=== PATIENT | female | born 1975 | race Caucasian/White ===

== ENCOUNTER 2020-06-18 10:23 | Emergency (ER) | payer MEDICARE, MEDICAID, SELFPAY ==
[2020-06-18] VITALS (17 sets, daily range): BP systolic 106–113; BP diastolic 58–85; PULSE 102–104; RESP 14–20; TEMP 36.6; O2SAT 95–96; BMI 26.6
[2020-06-18] MEDS: LORazepam 1 MG TABLET 2 MG PO ×3 (11:30→19:59)
--- NOTE | 2020-06-18 11:46 | ED_ITS ---
HPI - Psych General Chief Complaint: Psychiatric Symptoms Stated Complaint: cut wrist Time Seen by Provider: 06/18/20 11:06 Source: patient and EMS Mode of arrival: EMS Limitations: no limitations History of Present Illness HPI Narrative: 44yoF c PMHx of CVA and substance dependent on heroin sober since Apr 21, 2020 currently in senior care house presenting to the ED after increased anxiety, aggression and self injury pelletier to b/l forearms from a razor blade due to not being allowed to go to the store to purchase her cigarettes. Patient admits to SI with plan to cut her bilateral forearms or slammed her head into the wall until she starts bleeding. Reports auditory hallucinations telling her to harm herself if they do not let her do what she wants. Denies visual hallucinations. Patient denies HI. Denies recent drug or alcohol usage since 04/21/2020. Denies any additional complaints or concerns at this time. Related Data Home Medications Medication Instructions Recorded Confirmed aspirin 81 mg PO DAILY 06/18/20 06/18/20 atorvastatin 80 mg PO BEDTIME 06/18/20 06/18/20 folic acid 1 mg PO DAILY 06/18/20 06/18/20 gabapentin 1,200 mg PO TID 06/18/20 06/18/20 ibuprofen 800 mg PO Q8H PRN 06/18/20 06/18/20 multivitamin 1 tab PO DAILY 06/18/20 06/18/20 quetiapine [Seroquel] 300 mg PO BID 06/18/20 06/18/20 quetiapine [Seroquel] 600 mg PO BEDTIME 06/18/20 06/18/20 Allergies Allergy/AdvReac Type Severity Reaction Status Date / Time fish derived [fish] Allergy Anaphylaxis Verified 06/18/20 12:10 buprenorphine [From Suboxone] AdvReac Vomiting Verified 06/18/20 12:10 naloxone [From Suboxone] AdvReac Vomiting Verified 06/18/20 12:10 risperidone [From Risperdal] AdvReac Insomnia Verified 06/18/20 12:10 betacarotene AdvReac Nausea Uncoded 06/18/20 12:10 Review of Systems Review of Systems: Constitutional : No Fever, No Chills ENT/Mouth : No Ear Pain, No Nasal Congestion, No sore throat Eyes: No Eye Pain, No Swelling, No Redness Cardiovascular : No Chest Pain, No SOB Respiratory : No Cough, No Sputum, No Dyspnea Gastrointestinal : No ingestions, No Nausea, No Vomiting, No Diarrhea, No Hematochezia, No Melena Genitourinary : No Dysuria, No Urinary Frequency, No Hematuria Musculoskeletal : No Myalgias Skin : No Skin Lesions, No rash Neuro : No Weakness, No Numbness, No Paresthesias, No Dizziness, No Headache Psych : + Anxiety, + Depression, + SI, + No thoughts of self injury, No HI, + AVH, Heme/Lymph: No Lymphadenopathy Endocrine : No Polyuria, No Polydipsia Yes all other systems are reviewed and are negative [facility] Past Medical History Attestation statement: The following information was validated with the patient. Medical History (Updated 06/18/20 @ 12:31 by AMBROSIO Smith) CVA (cerebral vascular accident) Hep C w/o coma, chronic Skin cancer Substance abuse Social History Social History Alcohol intake: unknown Smoking Status: Current every day smoker Use of substances other than those prescribed or required for medical reasons: No Any prior treatment program specific to substance use: Yes Advance Directives: No Advance Directives Information Provided: Yes Physical Exam Vital Signs: Vital Signs: Last Vital Signs Temp 97.8 F 06/18/20 18:00 Pulse 102 H 06/18/20 18:00 Resp 18 06/18/20 18:00 BP 106/85 06/18/20 18:00 Pulse Ox 95 06/18/20 18:00 Body Mass Index 26.6 vital signs have been reviewed as normal and appeared to be correct. Blood pressure normal. Heart rate tachycardic. Respiration rate normal. Temperature normal. Oxygen saturation normal. Appearance: Alert. Oriented X3. patient appears very sad and anxious along with depressed currently crying over her cigarettes. otherwise no acute distress. Head: Normal external exam. Normocephalic. Atraumatic. Eyes: PERRLA. EOMI. Conjunctiva and sclera normal. Eyelids normal. ENT: EAC normal. TM's Normal. Pharynx normal. Uvula midline. Moist mucous membranes. Neck: Normal inspection. Neck supple. FROM. No meningeal signs. CVS: Normal heart rate and rhythm. Heart sound normal. No murmurs noted. Pulses normal throughout. Respiratory: No respiratory distress. Painless inspiration. Breath sounds normal. No wheezes/rales/rhonchi noted. Chest nontender. No accessory muscle usage noted or decreased air movement noted. Back: Full range of motion noted. Skin: Skin warm and dry. Normal skin color. Normal skin turgor. Multiple oakley perficial self-injury linear lacerations to bilateral forearms. Bleeding is controlled. No foreign bodies. No signs of infection/drainage/surrounding erythema. No rashes/lesions noted. Extremities: Extremities exhibit normal range of motion. Extremities nontender. Neuro: Oriented X 3. No motor deficit. No sensory deficit. Reflexes normal. Psych: Appearance grossly normal, well-kept, mental status normal, speech is pressured and clear, Is cooperative. Bad thought process. Bad thought content. Abnormal insight. Bad Judgment. Course Course Course Narrative: 11:30AM - 44yoF c PMHx of CVA and substance dependent on heroin sober since Apr 21, 2020 currently in senior care house presenting to the ED after increased anxiety, aggression and self injury pelletier to b/l forearms from a razor blade due to not being allowed to go to the store to purchase her cigarettes. SI with plan to cut her bilateral forearms or slam head into the wall until she starts bleeding. Reports auditory hallucinations telling her to harm herself if they do not let her do what she wants. Denies visual hallucinations. Patient denies HI. Denies recent drug or alcohol usage since 04/21/2020. - Plan: Labs provide ativan, BHN evaluation then re-evaluate. Reevaluation(s) Reevaluation #1: mild elevation in AST/ALT at 51/50. Otherwise all other labs are within normal limits. COVID swab negative. Still awaiting UA and drugs of abuse screen. Patient medically cleared at this time. Awaiting BHN evaluation. Will continue to monitor. Time: 15:01 Reevaluation #2: Patient removed her dressings to bilateral forearms and started picking the scab started being aggressively and verbally abusive. Increased aggression and anxiety. Screaming using profanity. Therefore had to be placed in 4 point restraints and medical restraints. Will continue to monitor. Time: 17:17 [facility] - Psych Restraints Face to Face Assessment: Face to Face Assessment: Current Situation: After assessment of the patient, a review of the pertinent medical record and a discussion with nursing staff, I feel the patient requires a restrain intervention. Reaction To: [] Medical Condition: [] Behavioral State: [] Continued Need: [] Medical Records Attestation: I reviewed the patient's medical records. Lab Data Attestation: I reviewed the patient's lab results. Result diagrams: 06/18/20 11:57 06/18/20 11:57 Labs: Lab Results 06/18/20 06/18/20 06/18/20 Range/Units 11:57 11:57 11:57 WBC 3.7 L (4.8-10.8) X10*3/uL RBC 4.75 (4.20-5.50) X10*6/uL Hgb 12.5 (12.0-16.0) g/dl Hct 39.3 (37-47) % MCV 82.7 (80-98) fL MCH 26.3 L (27.0-33.0) pg MCHC 31.8 (31.0-35.0) g/dl RDW 13.6 (11.0-16.0) % Plt Count 97 L (160-400) X10*3/uL MPV Not Reportable Immature Gran % (Auto) 0.3 (0.0-0.4) % Neut % (Auto) 57.3 (45-73) % Lymph % (Auto) 33.8 (20-40) % [place] % (Auto) 4.9 (2-11) % Eos % (Auto) 3.2 (0-4) % Baso % (Auto) 0.5 (0-2) % Lymph # (Auto) 1.3 (1.2-4.9) X10*3/uL [place] # (Auto) 0.2 (0.1-1.2) X10*3/uL Eos # (Auto) 0.1 (0.0-0.4) X10*3/uL Baso # (Auto) 0.0 (0.0-0.2) X10*3/uL Abs Immat Gran (auto) 0.01 (0.00-0.03) X10*3/uL Absolute Neuts (auto) 2.1 (2.0-8.3) X10*3/uL Absolute Nucleated RBC 0.000 (0.0-0.012) X10*3/uL Nucleated RBC % (auto) 0.0 (0.0-0.2) /100WBC Sodium 138 (135-145) mmol/L Potassium 4.5 (3.3-5.1) mmol/l Chloride 105 (96-108) mmol/L Carbon Dioxide 23 (22-29) mmol/L Anion Gap 15 (12-20) BUN 15 (9-16) mg/dL Creatinine 0.79 (0.5-1.4) mg/dL Estim Creat Clear Calc 99.3 Estimated GFR > 60 Random Glucose 90 (60-115) mg/dL Calcium 8.1 L (8.4-10.2) mg/dL Magnesium 2.0 (1.6-2.6) mg/dL Total Bilirubin 0.3 (0.0-1.0) mg/dL Direct Bilirubin < 0.2 (0.0-0.5) mg/dL AST 51 H (5-31) U/L ALT 50 H (0-31) U/L Alkaline Phosphatase 57 (39-117) U/L Total Protein 7.4 (6.5-8.0) g/dL Albumin 4.0 (3.5-5.0) g/dL Ethyl Alcohol < 10 mg/dL COVID-19 (PAUL) (Negative) COVID-19 Clin Com 06/18/20 Range/Units 12:11 WBC (4.8-10.8) X10*3/uL RBC (4.20-5.50) X10*6/uL Hgb (12.0-16.0) g/dl Hct (37-47) % MCV (80-98) fL MCH (27.0-33.0) pg MCHC (31.0-35.0) g/dl RDW (11.0-16.0) % Plt Count (160-400) X10*3/uL MPV Immature Gran % (Auto) (0.0-0.4) % Neut % (Auto) (45-73) % Lymph % (Auto) (20-40) % [place] % (Auto) (2-11) % Eos % (Auto) (0-4) % Baso % (Auto) (0-2) % Lymph # (Auto) (1.2-4.9) X10*3/uL [place] # (Auto) (0.1-1.2) X10*3/uL Eos # (Auto) (0.0-0.4) X10*3/uL Baso # (Auto) (0.0-0.2) X10*3/uL Abs Immat Gran (auto) (0.00-0.03) X10*3/uL Absolute Neuts (auto) (2.0-8.3) X10*3/uL Absolute Nucleated RBC (0.0-0.012) X10*3/uL Nucleated RBC % (auto) (0.0-0.2) /100WBC Sodium (135-145) mmol/L Potassium (3.3-5.1) mmol/l Chloride (96-108) mmol/L Carbon Dioxide (22-29) mmol/L Anion Gap (12-20) BUN (9-16) mg/dL Creatinine (0.5-1.4) mg/dL Estim Creat Clear Calc Estimated GFR Random Glucose (60-115) mg/dL Calcium (8.4-10.2) mg/dL Magnesium (1.6-2.6) mg/dL Total Bilirubin (0.0-1.0) mg/dL Direct Bilirubin (0.0-0.5) mg/dL AST (5-31) U/L ALT (0-31) U/L Alkaline Phosphatase (39-117) U/L Total Protein (6.5-8.0) g/dL Albumin (3.5-5.0) g/dL Ethyl Alcohol mg/dL COVID-19 (PAUL) Negative (Negative) COVID-19 Clin Com See Note Discharge Plan Discharge Clinical Impression: Acute anxiety, Laceration, Self-inflicted injury Prescriptions: No Action multivitamin Tablet 1 tab PO DAILY RF: 0 atorvastatin 80 mg Tablet 80 mg PO BEDTIME RF: 0 quetiapine [Seroquel] 300 mg Tablet 300 mg PO BID RF: 0 quetiapine [Seroquel] 300 mg Tablet 600 mg PO BEDTIME RF: 0 ibuprofen 800 mg Tablet 800 mg PO Q8H PRN (Reason: Pain, Moderate) RF: 0 folic acid 1 mg Tablet 1 mg PO DAILY RF: 0 aspirin 81 mg Tablet 81 mg PO DAILY RF: 0 gabapentin 400 mg Capsule 1,200 mg PO TID RF: 0
[2020-06-18 12:04] LABS: MANUAL DIFF FLAG NO
[2020-06-18 12:05] LABS: Basophils Percent Auto 0.5 % (0-2); Eosinophils Absolute Auto 0.1 X10*3/uL (0.0-0.4); Eosinophils Percent Auto 3.2 % (0-4); Hematocrit 39.3 % (37-47); Hemoglobin 12.5 g/dl (12.0-16.0); Imm Gran Abs Auto 0.01 X10*3/uL (0.00-0.03); Imm Gran Pct Auto 0.3 % (0.0-0.4); Lymphocytes Absolute Auto 1.3 X10*3/uL (1.2-4.9); Lymphocytes Percent Auto 33.8 % (20-40); Mean Corpuscular HGB Conc 31.8 g/dl (31.0-35.0); Mean Corpuscular Hemoglobin 26.3 pg (27.0-33.0); Mean Corpuscular Volume 82.7 fL (80-98); Monocytes Absolute Auto 0.2 X10*3/uL (0.1-1.2); Monocytes Percent Auto 4.9 % (2-11); Neutrophils Absolute Auto 2.1 X10*3/uL (2.0-8.3); Neutrophils Percent Auto 57.3 % (45-73); Red Blood Count 4.75 X10*6/uL (4.20-5.50); Red Cell Distribution Width 13.6 % (11.0-16.0); White Blood Count 3.7 X10*3/uL (4.8-10.8)
[2020-06-18 12:06] LABS: Platelet Count 97 X10*3/uL (160-400)
[2020-06-18 12:41] LABS: COVID-19 Test Negative (Negative)
[2020-06-18 12:45] LABS: Alanine Aminotransferase 50 U/L (0-31); Alkaline Phosphatase 57 U/L (39-117); Anion Gap 15 (12-20); Aspartate Amino Transferase 51 U/L (5-31); Bilirubin Direct < 0.2 mg/dL (0.0-0.5); Bilirubin Total 0.3 mg/dL (0.0-1.0); Blood Urea Nitrogen 15 mg/dL (9-16); Calcium 8.1 mg/dL (8.4-10.2); Carbon Dioxide 23 mmol/L (22-29); Chloride 105 mmol/L (96-108); Creatinine Clr Calc Pharmacy 99.3; Estimated Glomerular Filt Rate > 60; Glucose Random 90 mg/dL (60-115); Potassium 4.5 mmol/l (3.3-5.1); Sodium 138 mmol/L (135-145); Total Protein 7.4 g/dL (6.5-8.0)
[2020-06-18 12:50] LABS: Ethanol < 10 mg/dL
--- NOTE | 2020-06-18 12:50 | PC.NURSE ---
Pt resting, resp unlabored. Received call from Arleen Vee at [facility]: [phone]- stating that they would not accept pt back.
--- NOTE | 2020-06-18 14:00 | PC.NURSE ---
BLAIR[facility] called/faxed.
[2020-06-18] MEDS: Gabapentin 600 MG TABLET 1200 MG PO (16:00)
[2020-06-18] MEDS: QUEtiapine Fumarate 300 MG TABLET PO ×2 (16:07→19:59)
--- NOTE | 2020-06-18 16:21 | PC.NURSE ---
Lana mckinley called re: medication history. Fax received from Lana mckinley r/t medications prescribed. Pt contests Gabapentin dosage as written, states that she takes 1200 mg TID. Lana mckinley called, left message to clarify. Pt escalated, stating that she had already missed a dose, swearing, insulting staff. Lana mckinley called again- they reviewed MD notes- confirmed that pt takes 1200 mg Gabapentin TID. Pt aware that dosage was confirmed. N called- no one picking up call. Care team aware.
--- NOTE | 2020-06-18 17:13 | PC.NURSE ---
Late entry: 1530 Pt increasingly agitated, swearing at staff, insulting staff, wanting her medications immediately- explained to pt that med rec is a process, pt unable to hear, began to scream, then began to pick ayt wounds, and bleeding on floor. Multiple attempts made to negotiate with pt, able to complete med rec, pt medicated as requested, but now pt demanding to leave. explained many times to pt that crisis must see her before disposition can be accomplished- pt unable to hear, screaming at staff. security called. pt restrained. [facility] returned call, plan to send clinician at 1800.
[2020-06-18] MEDS: Ziprasidone Mesylate 20 MG VIAL 10 MG IM (17:18)
--- NOTE | 2020-06-18 18:10 | PC.NURSE ---
PT released from restraints at 1800. When offered comfort measures, such as food, blankets and pillows, by MHA PT became verbally aggressive and made derogatory statements towards staff. PT is somewhat redirectable and stopped making remarks when she was asked to by the nurse.
--- NOTE | 2020-06-18 19:13 | PC.NURSE ---
BHN in to see pt
[2020-06-18] MEDS: Gabapentin 400 MG CAPSULE 1200 MG PO (19:58)
[2020-06-18] MEDS: QUEtiapine Fumarate 300 MG TABLET 600 MG PO (19:59)
[2020-06-18] MEDS: Atorvastatin Calcium 80 MG TABLET PO (20:06)
[2020-06-18] MEDS: Ibuprofen 800 MG TABLET PO (20:06)
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
[2020-06-18] MEDS: OLANZapine 10 MG VIAL IM (21:05)
[2020-06-18] MEDS: LORazepam 2 MG/ML VIAL IM (21:05)
--- NOTE | 2020-06-18 21:33 | PC.NURSE ---
Patient seems very upset over disposition, stating she has been
--- NOTE | 2020-06-18 23:36 | PC.NURSE ---
Patient in bed appears sleeping, patient is s/p restraint, respiration +/=/non-labored bilaterally, will continue to monitor.
[2020-06-19] VITALS (16 sets, daily range): BP systolic 85–120; BP diastolic 58–103; PULSE 18–123; RESP 16–117; TEMP 36.1–36.6; O2SAT 95–100
--- NOTE | 2020-06-19 01:08 | PC.NURSE ---
Patient just came out of room with her eyes closed asking for drinks, patient situated in chair, room cleaned/bedding changed/lacerations on left inner arm irritated/open/scantly bleeding/washed with NS/pad dry/covered with gauze & secured with tapes. Patient in bed currently, covered with warm blanket, appears sleeping, no distress observed at this time, will continue to monitor.
--- NOTE | 2020-06-19 02:00 | PC.NURSE ---
Patient just woke up for bathroom use, gaits unsteady, needs total toileting care, patient washed/changed/ushered back to room with two assist for ambulation. Will continue to monitor.
--- NOTE | 2020-06-19 04:19 | PC.NURSE ---
Patient up with multiple needs, compliant with Vital signs assessment & WNL, patient groggy at this time, denied distress at this time, will continue to monitor.
[2020-06-19] MEDS: LORazepam 1 MG TABLET 2 MG PO ×2 (05:41→21:01)
--- NOTE | 2020-06-19 06:14 | PC.NURSE ---
Patient in bed resting, was up earlier for multiple needs including medication, PRN ativan 2 mg administered as ordered. [facility] called/Methadone dose verified/provider notified and approved/pharmacy faxed/pending MAR update. Will continue to monitor the patient.
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
[2020-06-19] MEDS: Multivitamin TABLET 1 TAB PO (08:00)
[2020-06-19] MEDS: Gabapentin 400 MG CAPSULE 1200 MG PO (08:00)
[2020-06-19] MEDS: Folic Acid 1 MG TABLET PO (08:00)
[2020-06-19] MEDS: QUEtiapine Fumarate 300 MG TABLET PO ×2 (08:00→21:00)
[2020-06-19] MEDS: Aspirin 81 MG TAB.CHEW PO (08:14)
--- NOTE | 2020-06-19 11:03 | MHC.CARE ---
Pt is currently a bedsearch through [facility] Behavioral Health Director requested CARE Team to follow up with [facility] regarding possible Section 35. CARE left a message for hSilpi at [facility] and awaiting a call back.
--- NOTE | 2020-06-19 11:07 | PM.PSYCN ---
History of Present Illness Chief Complaint: cut wrist Reason for Consult: med recommendation aggression agitation Requesting physician: Alexandra Astorga Discussed with referring provider: Yes Sources of Information: chart reviewed Additional Sources of Information: RN HPI Narrative: Pt is a 44 year old female who presented to [facility] from intermediate house due to aggressive behaviors and suicidal statements at residence secondary to not being able to go to the store to purchase cigarettes. Once in ED patient aggressive, agitated, threatening, engaging in self injurious behaviors. Required multiple physical and chemical restraints. Pt asleep when this aligner typewriter arrived to area of ED. Per RN, when awake, patient angry, aggressive, threatening. Medication list reviewed, no previous history at [facility]. Reported that patient was recently released from incarceration. Medical history reported to include history of CVA and possible brain injury realted to this. Past Psychiatric History: Unknown, but has psychotropic medications prescribed Medical Evaluation Reviewed: Yes Still waiting on UDS Review of Systems Review of Systems Yes Unobtainable due to mental status [facility] Medical History (Updated 06/19/20 @ 11:18 by Natalia Peter CNP) CVA (cerebral vascular accident) Hep C w/o coma, chronic Skin cancer Substance abuse Diagnostics Vital Signs (24Hr): Vital Signs - 24 hr 06/18/20 11:18 06/18/20 17:00 06/18/20 17:15 Temperature 97.8 F Pulse Rate 104 H Respiratory Rate 18 20 20 Blood Pressure 113/58 L Pulse Oximetry 96 06/18/20 17:30 06/18/20 17:45 06/18/20 18:00 Temperature 97.8 F Pulse Rate 102 H Respiratory Rate 18 20 18 Blood Pressure 106/85 Pulse Oximetry 95 06/18/20 20:50 06/18/20 21:05 06/18/20 21:08 Temperature Pulse Rate Respiratory Rate 20 20 20 Blood Pressure Pulse Oximetry 06/18/20 21:09 06/18/20 21:23 06/18/20 21:24 Temperature Pulse Rate Respiratory Rate 20 14 14 Blood Pressure Pulse Oximetry 06/18/20 21:38 06/18/20 21:39 06/18/20 21:53 Temperature Pulse Rate Respiratory Rate 14 14 14 Blood Pressure Pulse Oximetry 06/18/20 21:54 06/18/20 22:08 06/19/20 04:31 Temperature 97.8 F Pulse Rate 81 Respiratory Rate 14 14 17 Blood Pressure 98/58 L Pulse Oximetry 99 06/19/20 09:05 Temperature 97.3 F Pulse Rate 110 H Respiratory Rate Blood Pressure 104/66 Pulse Oximetry 95 Body Mass Index 26.6 Labs Results: 06/18/20 11:57 06/18/20 11:57 Labs: Laboratory Results - last 48 hr 06/18/20 06/18/20 06/18/20 11:57 11:57 11:57 WBC 3.7 L RBC 4.75 Hgb 12.5 Hct 39.3 MCV 82.7 MCH 26.3 L MCHC 31.8 RDW 13.6 Plt Count 97 L MPV Not Reportable Immature Gran % (Auto) 0.3 Neut % (Auto) 57.3 Lymph % (Auto) 33.8 [place] % (Auto) 4.9 Eos % (Auto) 3.2 Baso % (Auto) 0.5 Lymph # (Auto) 1.3 [place] # (Auto) 0.2 Eos # (Auto) 0.1 Baso # (Auto) 0.0 Abs Immat Gran (auto) 0.01 Absolute Neuts (auto) 2.1 Absolute Nucleated RBC 0.000 Nucleated RBC % (auto) 0.0 Sodium 138 Potassium 4.5 Chloride 105 Carbon Dioxide 23 Anion Gap 15 BUN 15 Creatinine 0.79 Estim Creat Clear Calc 99.3 Estimated GFR > 60 Random Glucose 90 Calcium 8.1 L Magnesium 2.0 Total Bilirubin 0.3 Direct Bilirubin < 0.2 AST 51 H ALT 50 H Alkaline Phosphatase 57 Total Protein 7.4 Albumin 4.0 Ethyl Alcohol < 10 COVID-19 (PAUL) COVID-19 Clin Com 06/18/20 12:11 WBC RBC Hgb Hct MCV MCH MCHC RDW Plt Count MPV Immature Gran % (Auto) Neut % (Auto) Lymph % (Auto) [place] % (Auto) Eos % (Auto) Baso % (Auto) Lymph # (Auto) [place] # (Auto) Eos # (Auto) Baso # (Auto) Abs Immat Gran (auto) Absolute Neuts (auto) Absolute Nucleated RBC Nucleated RBC % (auto) Sodium Potassium Chloride Carbon Dioxide Anion Gap BUN Creatinine Estim Creat Clear Calc Estimated GFR Random Glucose Calcium Magnesium Total Bilirubin Direct Bilirubin AST ALT Alkaline Phosphatase Total Protein Albumin Ethyl Alcohol COVID-19 (PAUL) Negative COVID-19 Clin Com See Note Mental Status Exam Mental Status Exam Narrative: Pt asleep when this aligner typewriter arrived, but report is that she is concrete, aggressive, agitated and requiring firm limit setting Level of Consciousness: Sedated Abnormal Motor Activity Signs and Symptoms: Aggression and Agitation Judgement: Poor Medications Medications Current Medications Generic Name Dose Route Start Last Admin Trade Name Freq PRN Reason Stop Dose Admin Aspirin 81 mg 06/19/20 09:00 06/19/20 08:14 Aspirin 81 Mg Tab.Chew PO 81 mg DAILY THOMAS Administration Atorvastatin Calcium 80 mg 06/18/20 21:00 06/18/20 20:06 Atorvastatin Calcium 80 Mg Tablet PO 80 mg BEDTIME THOMAS Administration Folic Acid 1 mg 06/19/20 09:00 06/19/20 08:00 Folic Acid 1 Mg Tablet PO 1 mg DAILY THOMAS Administration Gabapentin 1,200 mg 06/18/20 21:00 06/19/20 08:00 Gabapentin 400 Mg Capsule PO 1,200 mg TID THOMAS Administration Ibuprofen 800 mg 06/18/20 16:34 06/18/20 20:06 Ibuprofen 800 Mg Tablet PO 800 mg Q8H PRN Administration Pain, Moderate Lorazepam 2 mg 06/18/20 11:21 06/19/20 05:41 Lorazepam 1 Mg Tablet PO 2 mg RQ4H PRN Administration anxiety/restlessness Lorazepam 2 mg 06/19/20 10:48 Lorazepam 1 Mg Tablet PO RQ4H PRN anxiety/restlessness Methadone HCl 50 mg 06/19/20 09:00 06/19/20 08:01 Methadone Hcl 1 Mg/0.1 Ml Oral.Conc PO 50 mg DAILY THOMAS Administration Multivitamins/Vitamin C 1 tab 06/19/20 09:00 06/19/20 08:00 Multivitamin Tablet PO 1 tab DAILY THOMAS Administration Quetiapine Fumarate 300 mg 06/18/20 21:00 06/19/20 08:00 Quetiapine Fumarate 300 Mg Tablet PO 300 mg BID THOMAS Administration Quetiapine Fumarate 600 mg 06/18/20 21:00 06/18/20 19:59 Quetiapine Fumarate 300 Mg Tablet PO 600 mg BEDTIME THOMAS Administration Allergies Allergies Allergy/AdvReac Type Severity Reaction Status Date / Time fish derived [fish] Allergy Anaphylaxis Verified 06/18/20 12:10 buprenorphine [From Suboxone] AdvReac Vomiting Verified 06/18/20 12:10 naloxone [From Suboxone] AdvReac Vomiting Verified 06/18/20 12:10 risperidone [From Risperdal] AdvReac Insomnia Verified 06/18/20 12:10 [email or web address] AdvReac Nausea Uncoded 06/18/20 12:10 Assessment & Plan Assessment & Plan (1) Mood disorder: Status: Acute Code(s): F39 - Unspecified mood [affective] disorder Recommendations: EKG UDS --? of behaviors related to substance use Decrease Gabapentin to 900mg TID Add Depakote 250mg TID Would be helpful to know about any other medication trials and history of psychiatric sx Greater than 50% of the session was spent on counseling and/or coordination of care
--- NOTE | 2020-06-19 11:30 | MHC.CARE ---
Addendum entered by Megan Munoz LCSW 06/19/20 16:47: lack of documentation Original Note: CARE Team spoke with Shilpi from [facility]- Pt is not appropriate to be Section 35'd at this time due to the acuity of her mental health and documentation of her ongoing substance use. Information relayed to Behavioral Health Director.
--- NOTE | 2020-06-19 11:38 | MHC.CARE ---
Spoke with chief business development officer Jahaira [phone], she indicate that Na currently is not on probation in the [facility]. She informed to me that she has a long history of mental and substance abuse. She was not able to provide more information on patient.
--- NOTE | 2020-06-19 11:53 | PC.NURSE ---
Pt awake, continues to be agitated while awake, and drowsy, easily falling asleep when sitting. Pt encouraged to give urine sample- despite many multiple approaches, no urine sample provided.
--- NOTE | 2020-06-19 13:43 | PC.NURSE ---
Pt threw lunch against the wall. security in pt angry, droswy, swearing at staff and security.
[2020-06-19] MEDS: OLANZapine 10 MG VIAL IM ×2 (14:20→17:50)
--- NOTE | 2020-06-19 15:18 | PC.NURSE ---
Pt out of restraints. Pt notified that her medications have been modified by consulting provider. Pt declining to take any medications. Pt currently in room, given turkey sandwich which she smeared on the door.
--- NOTE | 2020-06-19 15:34 | PC.NURSE ---
pt resting, resp unlabored.
[2020-06-19 16:55] LABS: Glucose Urine UA NEG (NEG); Leukocyte Esterase Urine NEG (NEG); Nitrite Urine NEG (NEG); Specific Gravity - Urine 1.025 (1.005-1.025); Urine Blood 3+ (NEG); Urine Ketones NEG (NEG); Urine Protein NEG (NEG-TRACE)
[2020-06-19 16:56] LABS: Appearance Urine HAZY; Color Urine YELLOW
[2020-06-19 17:08] LABS: RBC Urine 50-75 /HPF (0); Squamous Epithelial Cell Urine TRACE /LPF; WBC Urine 0 /HPF (0-4)
[2020-06-19 17:14] LABS: Amphetamine Screen Urine Not Detected (Not Detect); Barbiturates, Urine Not Detected (Not Detect); Benzodiazepines Screen Urine Not Detected (Not Detect); Cannabinoid Screen Urine Not Detected (Not Detect); Cocaine Screen Urine Not Detected (Not Detect); Opiate Screen Urine Not Detected (Not Detect); Phencyclidine Screen Urine Not Detected (Not Detect)
[2020-06-19] MEDS: Ketamine HCl 500 MG/5 ML VIAL 160 MG IM (17:18)
[2020-06-19] MEDS: Lidocaine HCl 2 % MPF 5 ML VIAL 20 ML SUBCUT (17:30)
--- NOTE | 2020-06-19 17:45 | PC.NURSE ---
Late entry~1715: pt increasingly agitated, demanding PRN. Pt reminded that she had declined regular medications. Pt began to strike her head against the door- MHA entered room to prevent pt from self harm. Pt toes were injured in process- bilateral nails on great toes avulsed - provider, ED coordinator in- DSD w/ NS applied. Pt very agitated, screaming at staff. Report given to NATE Kelly, pt transferred to main ED for treatment.
[2020-06-19 17:46] LABS: UPreg QC Valid YES; Urine Pregnancy NEGATIVE (NEGATIVE)
[2020-06-19] MEDS: QUEtiapine Fumarate 300 MG TABLET 600 MG PO (21:00)
[2020-06-19] MEDS: Ibuprofen 800 MG TABLET PO (21:00)
[2020-06-19] MEDS: Atorvastatin Calcium 80 MG TABLET PO (21:01)
[2020-06-20] VITALS (33 sets, daily range): BP systolic 99–130; BP diastolic 65–82; PULSE 78–120; RESP 14–22; TEMP 36.2–36.7; O2SAT 96–100
--- NOTE | 2020-06-20 00:53 | PC.NURSE ---
PT woke up and moved out of bed very confused. PT asked where she was and stated that [facility]. PT was given verbal reassurance and encouraged to go back to bed. PT agreed and was easily redirected back to her room.
[2020-06-20] MEDS: LORazepam 1 MG TABLET 2 MG PO ×3 (01:26→21:29)
--- NOTE | 2020-06-20 05:57 | PC.NURSE ---
PT woke up around 05:00 and began screaming for her methadone. I explained to the PT that the methadone clinic couldn't be called until 06:00 when they open. PT behavior continued to escalate and required additional assistance from security and nurses. PT was throwing crackers and pudding around her room. She then proceeded to make vulgar comments to nurses and security. PT is unable to hold a logical conversation. She does not understand that she is being held here on a Section 12 and is unable to leave.
--- NOTE | 2020-06-20 06:39 | PC.NURSE ---
PT is making statements that she will continue to act out for the sole purpose of receiving more medications. PT continues to demand methadone which is not due until 0900.
--- NOTE | 2020-06-20 06:57 | PC.NURSE ---
PT was continuing to verbally assault security and nursing staff. PT began banging her hands, feet, and head against the door. Verbal deescalation was attempted to no effect. PT continued to demand her medications which are not due until 09:00. During restraint PT continued to threaten staff, continued screaming. PT refusing vital signs at this time.
--- NOTE | 2020-06-20 07:15 | PC.NURSE ---
PT continues yelling in her room, explained that in order to remove restraints PT needs to be calm and cooperative.
--- NOTE | 2020-06-20 07:43 | PC.NURSE ---
Pt continues periodically yelling, plan of care explained.
--- NOTE | 2020-06-20 08:10 | PC.NURSE ---
Pt released from restraints, periodically yelling, limits set.
[2020-06-20] MEDS: Aspirin 81 MG TAB.CHEW PO (08:38)
[2020-06-20] MEDS: QUEtiapine Fumarate 300 MG TABLET PO ×2 (08:38→21:28)
[2020-06-20] MEDS: Gabapentin 300 MG CAPSULE 900 MG PO ×2 (08:38→21:29)
[2020-06-20] MEDS: Folic Acid 1 MG TABLET PO (08:39)
[2020-06-20] MEDS: Multivitamin TABLET 1 TAB PO (08:39)
[2020-06-20] MEDS: Divalproex Sodium 250 MG TABLET.DR PO (08:39)
--- NOTE | 2020-06-20 09:06 | PC.NURSE ---
PT continues yelling and threatening staff. PT agreeable to take medication at this time, IM zyprexa given. PT continues yelling and threatening, stating I threw hot coffee in a nurses face and went to nursing home, be forewarned. Pt currently throwing papers at staff. Verbal deescalation ineffective at this time, pt redirected to her room.
[2020-06-20] MEDS: OLANZapine 10 MG VIAL IM ×2 (09:20→09:48)
--- NOTE | 2020-06-20 09:36 | PC.NURSE ---
Addendum entered by Woody Youngblood 06/20/20 11:50: during this time, pt had thrown all loose papers found around unit, tipped over millieu furniture, pounding fists against tv in room, throwing breakfast foods around millieu. pt not redirectable. Original Note: pt has exhausted extensive deescalation avenues, continuing to scream and insult staff members, making racial comments about different staff members. pt has been given multiple attempts to return to room, take anxiety medications. pt has been medicated with all ordered meds, continues to state that none of you fucking pieces of shit have given me anything, fucking cheapskates . security at bedside for entirety of encounter, pt moved back to behavioral restraints att. provider aware. wctm.
--- NOTE | 2020-06-20 10:02 | PC.NURSE ---
PT continues screaming and threatening staff. Verbal reassurance given, plan of care explained.
--- NOTE | 2020-06-20 12:00 | PC.NURSE ---
Restraints discontinued, pt agrees to remain safe at this time, pt encouraged to try and sleep, pt immediately requesting medication to sleep.
--- NOTE | 2020-06-20 14:10 | PC.NURSE ---
PT sleeping, respirations even and unlabored, in no apparent distress.
--- NOTE | 2020-06-20 15:07 | PC.NURSE ---
pt att getting needed rest, will hold off on scheduled meds.
--- NOTE | 2020-06-20 16:16 | PC.NURSE ---
pt continues to sleep in bed, rr even/unlabored.
--- NOTE | 2020-06-20 17:35 | PC.NURSE ---
pt up, ambulating around millieu w steady gait, asking for warm blanket. in better behavioral control at this time, pt asking if we can wrap toes.
--- NOTE | 2020-06-20 18:21 | PC.NURSE ---
PT agitated, yelling and swearing at staff. PT demanding her clothing, policy's explained, pt insulting staff, threatening. De-escalation attempted, pt continues to yell and threaten staff. PT redirected to her room, pt rubbing bloody clothing on window of door. De-escalation techniques exhausted, pt continues screaming and threatening. Pt placed in restraints. Provider on unit.
--- NOTE | 2020-06-20 19:28 | PC.NURSE ---
PT complaining that she was in pain while in restraints. CSM and ROM were checked in the upper and lower extremities and found to be well intact. PT then started complaining that she was cold and screaming for a nurse. PT was given a blanket and provided comfort measures. PT was then left and in her room alone and soon after started to scream that she needs someone to talk to and make the voices stop .
[2020-06-20] MEDS: diphenhydrAMINE HCL 50 MG/ML VIAL 25 MG IM (19:45)
--- NOTE | 2020-06-20 20:14 | PC.NURSE ---
Pt no longer thrashing and banging, continues to yell. Thorazine 25 MG and benadryl 25 MG IM given at 194.
[2020-06-20] MEDS: QUEtiapine Fumarate 300 MG TABLET 600 MG PO (21:28)
[2020-06-20] MEDS: Atorvastatin Calcium 80 MG TABLET PO (21:35)
--- NOTE | 2020-06-20 22:30 | PC.NURSE ---
PT released from restraints at this time. PT appears to be drowsy and unsteady on her feet. PT escorted to bathroom for safety. PT used bath wipes to clean herself instead of using the shower. PT cleaned herself up, changed her aleks, and then went to her room and fell asleep. No other complaints at this time.
--- NOTE | 2020-06-21 03:59 | PC.NURSE ---
PT woke up and approached the nurse's station asking for some food. PT was given a pudding and sg crackers and went back to her room.
[2020-06-21] MEDS: LORazepam 1 MG TABLET 2 MG PO ×3 (05:02→21:00)
[2020-06-21] MEDS: Ibuprofen 800 MG TABLET PO (05:02)
--- NOTE | 2020-06-21 05:38 | PC.NURSE ---
PT came to nurse's station with complaints of toe pain and asked to have them assessed. Bandages were removed from both toes and observed by RN. Bandages were then reapplied with xeroform nonadhesive bandage, wrapped in Kerlix, and covered with clean socks.
[2020-06-21 06:25] VITALS: BP 93/57; PULSE 94; RESP 18; TEMP 36.3; O2SAT 94
--- NOTE | 2020-06-21 07:34 | PC.NURSE ---
PT demanding medication. Plan of care explained. PT states I will beat the fuck out of any one who gives me the wrong medications PT redirected, pt asking for coffee, pt stating I'll throw coffee in anyone's face, send me to snf . Verbally redirected, pt allowed to vent feelings, pt states that she yells because she is hard of hearing, pt appearing to cry at times, no tears noted. Pt labile yelling at staff then apologizing and demanding.
[2020-06-21] MEDS: Folic Acid 1 MG TABLET PO (08:13)
[2020-06-21] MEDS: Gabapentin 300 MG CAPSULE 900 MG PO ×3 (08:13→20:45)
[2020-06-21] MEDS: Multivitamin TABLET 1 TAB PO (08:13)
[2020-06-21] MEDS: Aspirin 81 MG TAB.CHEW PO (08:13)
[2020-06-21] MEDS: QUEtiapine Fumarate 300 MG TABLET PO ×2 (08:14→17:04)
--- NOTE | 2020-06-21 08:30 | PC.NURSE ---
Pt refused AM depakote, states it makes her feel like shit , states she does not understand why her medications were changed. Verbal reassurance given. Pt asking to sign 3 day letter, plan of care explained.
[2020-06-21 10:08] VITALS: RESP 20
--- NOTE | 2020-06-21 11:03 | PC.NURSE ---
pt slept, once awake pt asking when we are going shopping, states she has 3 different lists, attempted to give staff grocery list, pt reoriented, pt continues to ask when we can go to the store, pt redirected back to her room, encouraged to go back to sleep. Pt given warm blanket, and back to sleep.
[2020-06-21 12:18] VITALS: RESP 18
--- NOTE | 2020-06-21 14:21 | PC.NURSE ---
PT woke and immediatly began demanding medication. Pt then stating i'm leaving on the third day, i'll fuck you all up, I have an arsenal outside and i'm leaving on the third day Plan of care explained. Pt's lunch heated. Pt continues yelling at staff. Verbally redirected.
[2020-06-21] MEDS: Gabapentin 300 MG CAPSULE PO (17:04)
[2020-06-21 17:06] VITALS: BP 107/72; PULSE 116; RESP 20; TEMP 37.1; O2SAT 97
--- NOTE | 2020-06-21 18:10 | PC.NURSE ---
Pt continues yelling at staff, demanding medication, plan of care reviewed, Pt unhappy with plan requesting to leave. Pt redirected to her room.
[2020-06-21 20:34] VITALS: BP 112/68; PULSE 111; RESP 20; TEMP 37; O2SAT 97
[2020-06-21] MEDS: QUEtiapine Fumarate 300 MG TABLET 600 MG PO (20:44)
[2020-06-21 22:00] VITALS: RESP 18
[2020-06-22] VITALS (12 sets, daily range): RESP 18–26
[2020-06-22] MEDS: Ibuprofen 800 MG TABLET PO ×2 (04:54→21:02)
[2020-06-22] MEDS: LORazepam 1 MG TABLET 2 MG PO ×2 (04:54→23:05)
--- NOTE | 2020-06-22 05:11 | PC.NURSE ---
S/E: Pt yelling, swearing to staff members during shift. Pt demanding to staff, and wanting to have more crackers and snack. Pt pacing and talking to other patients. Redirect pt to stay room. Pt wanted to leave this facility. Pt confused. Pt refused to take scheduled atorvastatin 80 mg and depekot 250 mg ER. PRN Ativan 2 mg po given at 2100 and 0455 with little effect. Pt requested to have pain med for toe nails. PRN IBU 800 mg po given at 0455 with good effect. Pt continues to have section 12 and in patient bed search.
[2020-06-22] MEDS: OLANZapine 10 MG TABLET PO ×2 (06:09→23:05)
--- NOTE | 2020-06-22 06:19 | MHC.PIE ---
P: Escalating behaviors seen, yelling, swearing, pacing, restless. I: Redirect pt to go back to room. Pt refused. Security at hallway. Pt escorted to go back to room. made aware. Per , Zyprexa 10 mg po given. Will continue to monitor for behavior.
--- NOTE | 2020-06-22 06:39 | PC.NURSE ---
Addendum entered by Donald Lopez RN 06/22/20 06:43: Security at door way to de-esclate pt. pt sitting on the floor. Kept swearing to security. Original Note: pt threw everything (blanket, and blue scott pad) from room to the nursing station. Pt took out all the toilet tissue paper roll from bathroom. Pt kept saying to the staff, Take it and take it! Crayons and paper given per request but taken away due pt wrote F Y on the wall. Asked for tape for project. Explained that gema cannot be given until definitely know what kinds of project is for safety.
--- NOTE | 2020-06-22 07:25 | PC.NURSE ---
Report received from NATE Bennett. Pt awake, Setting off alwams, sswearing at staff. Denies SI.
[2020-06-22] MEDS: Aspirin 81 MG TAB.CHEW PO (08:14)
[2020-06-22] MEDS: Gabapentin 300 MG CAPSULE 900 MG PO ×3 (08:14→21:03)
[2020-06-22] MEDS: Multivitamin TABLET 1 TAB PO (08:14)
[2020-06-22] MEDS: Folic Acid 1 MG TABLET PO (08:14)
[2020-06-22] MEDS: QUEtiapine Fumarate 300 MG TABLET PO ×2 (09:19→14:50)
--- NOTE | 2020-06-22 09:28 | MHC.CARE ---
CARE Team spoke with the Director of the [facility]- Pt is well known to the director. Pt has most recently been there for the past 5 weeks and prior to this she was there for 3 months last year. The director feels Pt has has personality disorder, that Pt is not willing to engage in treatment. At baseline Pt can present as volatile , hostile, disruptive though can pulls it together when needed. The director has reported she does believe Pt has been using substances since admission to program 5 weeks ago. She reprted the program has given her multiple changes and doesn't believe the residential setting / structure is good fit for her. She does not believe Pt has any current providers as the [facility] provider that oversees the program has been continuing her medication since most recent hospitalization CARE Team notified the ED Director and Behavioral Director regarding the outcome of the conversation.
[2020-06-22] MEDS: OLANZapine 10 MG VIAL IM (09:29)
--- NOTE | 2020-06-22 10:19 | PC.NURSE ---
Late entry: 844- present: Pt awake on arrival, began to demand medications and PRNs on arrival. Pt aware that she can receive medixcations as ordered at 0800. Pt angry at medication changes, and at reduction of methadone. Pt given medications as ordered. Shortly after that she bagan to use the telephone to call 911. Pt redirected, security called. Pt began to shout, name call, swear at staff. Pt screaming 'i want myt medications.' pt reminded that she received medications as ordered. N March in to evaluate. Pt continued to scream, shouting that she wanted to get her medications. ED director in, Care team in. Pt continued to escalate behaviors, continuing to perseverate re: medications. Pt then began to bang her head. Pt restrained for safety, and medicated w/ zyprexa.
--- NOTE | 2020-06-22 11:24 | PC.NURSE ---
Pt resting, resp unlabored
--- NOTE | 2020-06-22 11:51 | PC.NURSE ---
Late entry: Great toe feet bilaterally evaluated- clean, dry, no erythema, no drainage. covered w/ dsd.
--- NOTE | 2020-06-22 14:58 | PC.NURSE ---
pt resting in room- listening to music on headphones at this time.
--- NOTE | 2020-06-22 16:44 | PC.NURSE ---
Pt resting, resp unlabored.
--- NOTE | 2020-06-22 17:53 | PC.NURSE ---
Pt resting until now- awake, requesting warm blanket-now in common area, watching television with other patients.
--- NOTE | 2020-06-22 18:29 | PC.NURSE ---
pt awake, drowsy- nodding off while sitting in common area. ate dinner, then began to demand medications for anxiety. declined to give medications due to sedation.
--- NOTE | 2020-06-22 18:51 | PC.NURSE ---
Pt resting, resp unlabored
--- NOTE | 2020-06-22 19:10 | PC.NURSE ---
Patient currently in bed appears sleeping, respiration +/=/non-labored bilaterally, per report patient had been loud and disruptive. not eating well, will continue to monitor and provide comfort.
[2020-06-22] MEDS: Atorvastatin Calcium 80 MG TABLET PO (21:02)
[2020-06-22] MEDS: QUEtiapine Fumarate 300 MG TABLET 600 MG PO (21:03)
--- NOTE | 2020-06-22 22:20 | PC.NURSE ---
Patient showered earlier, no dressing on bilateral toes, no nails on bilateral great toes, suture intact, washed with NS, pad dry, applied bacitracin, covered with non-adherent pad, secured with paper tape, no signs and infection noted, patient tolerated the process well. Patient continue to present disruptive behavior, loud, yelling, screaming at time, will continue to monitor.
--- NOTE | 2020-06-22 22:27 | PC.NURSE ---
Refused TRENT perez, compliant with rest of her medication.
--- NOTE | 2020-06-22 23:07 | PC.NURSE ---
Patient loud, disruptive, hyper-verbal, intrusive, inappropriate verbal boundary, patient's behavior is triggering other patients, provider notified/ordered olanzapine 10 mg PO/patient compliant. Patient back to bed currently, will continue to monitor.
--- NOTE | 2020-06-22 23:10 | PC.NURSE ---
Patient received Ativan 1 mg, Ativan 1 mg was held because patient received Seroquel 600 mg with HS medication.
--- NOTE | 2020-06-23 | ECG_ITS ---
Test Reason : MED CLEARANE Blood Pressure : / mmHG Vent. Rate : 091 BPM Atrial Rate : 091 BPM P-R Int : 164 ms QRS Dur : 102 ms QT Int : 384 ms P-R-T Axes : 030 092 048 degrees QTc Int : 472 ms Normal sinus rhythm Rightward axis Intra-ventricular conduction delay Borderline ECG No previous ECGs available Referred By: Alexandra Astorga Electronically Signed By:JOSE ALEJANDRO VARELA MD
--- NOTE | 2020-06-23 01:18 | PC.NURSE ---
Patient in bed appears sleeping, no distress observed/reported, respiration +/=/non-labored bilaterally, responded well to olanzapine, will continue to monitor and provide comfort
--- NOTE | 2020-06-23 04:02 | PC.NURSE ---
Patient in bed appears sleeping, no distress observed/reported, respiration +/+/non-labored bilaterally, will continue to monitor.
--- NOTE | 2020-06-23 06:53 | PC.NURSE ---
Patient in milieu loud, hyper-verbal, disruptive, verbally abusive to staff member, demanding medication, will continue to monitor,
--- NOTE | 2020-06-23 07:26 | PC.NURSE ---
Report received from NATE Paige. Pt awake, yelling at staff, swearing, demanding 'prn. Pt aware that she will be receiving medications at 0800 as scheduled. Pt continuing to yell, threw breakfast to ground, smearing peanut butter on whitaker. Security in. Dr. Zuleta in.
[2020-06-23] MEDS: Gabapentin 300 MG CAPSULE 900 MG PO ×2 (08:02→20:28)
[2020-06-23] MEDS: QUEtiapine Fumarate 300 MG TABLET PO (08:02)
[2020-06-23] MEDS: Multivitamin TABLET 1 TAB PO (08:03)
[2020-06-23] MEDS: Folic Acid 1 MG TABLET PO (08:03)
[2020-06-23] MEDS: Aspirin 81 MG TAB.CHEW PO (08:03)
--- NOTE | 2020-06-23 08:16 | PC.NURSE ---
Pt screaming 'i want a f...PRN' as loudly as possible despite receiving AM medications. N March in, aware of current behaviors.
--- NOTE | 2020-06-23 08:50 | PC.NURSE ---
Pt out in doorway, continues to be loud, swearing at staff. Limit set. pt encouraged to return to room and stop swearing.
--- NOTE | 2020-06-23 09:13 | PC.NURSE ---
Pt in doorway, appears more sedated, asking for methadone- reminded that she already received methadone.
[2020-06-23 09:38] VITALS: BP 113/67; PULSE 111; TEMP 36.2; O2SAT 97
[2020-06-23 09:41] VITALS: RESP 18
--- NOTE | 2020-06-23 09:55 | PC.NURSE ---
Pt appears to be disoriented, appears to not remember what day it is. Pt both drowsy and antagonistic, continues to attempt to provoke staff.
[2020-06-23 10:00] VITALS: RESP 18
--- NOTE | 2020-06-23 10:25 | MHC.CARE ---
0945 Call to [place] [employer]. there are no warrants out or charges against this patient in their records. N sending MSU from 06/21/20, will see patient later when today's bedsearch is exhausted. Psychiatry consult pending
--- NOTE | 2020-06-23 10:58 | PC.NURSE ---
Pt continues to appear sedated, labile, disoriented. Per care team, Dr. Frazier to evaluate pt and medications today.
[2020-06-23 11:41] LABS: Eosinophils Absolute Auto 0.2 X10*3/uL (0.0-0.4); Eosinophils Percent Auto 5.1 % (0-4); Hemoglobin 10.3 g/dl (12.0-16.0); Imm Gran Abs Auto 0.01 X10*3/uL (0.00-0.03); Imm Gran Pct Auto 0.3 % (0.0-0.4); MANUAL DIFF FLAG SCAN; Red Cell Distribution Width 13.2 % (11.0-16.0); SCAN SMEAR FLAG 1
[2020-06-23 11:43] LABS: Basophils Percent Auto 0.3 % (0-2); Hematocrit 31.7 % (37-47); Lymphocytes Absolute Auto 0.9 X10*3/uL (1.2-4.9); Lymphocytes Percent Auto 28.2 % (20-40); Mean Corpuscular HGB Conc 32.5 g/dl (31.0-35.0); Mean Corpuscular Hemoglobin 26.6 pg (27.0-33.0); Mean Corpuscular Volume 81.9 fL (80-98); Mean Platelet Volume 13.1 fL (9.4-12.3); Monocytes Absolute Auto 0.3 X10*3/uL (0.1-1.2); Monocytes Percent Auto 8.3 % (2-11); Neutrophils Absolute Auto 1.8 X10*3/uL (2.0-8.3); Neutrophils Percent Auto 57.8 % (45-73); Platelet Count 102 X10*3/uL (160-400); Red Blood Count 3.87 X10*6/uL (4.20-5.50); White Blood Count 3.1 X10*3/uL (4.8-10.8)
[2020-06-23 11:45] LABS: PLT ABN DIST 1
[2020-06-23 12:00] VITALS: RESP 18
[2020-06-23 12:13] LABS: Alanine Aminotransferase 75 U/L (0-31); Albumin Level 4.1 g/dL (3.5-5.0); Alkaline Phosphatase 55 U/L (39-117); Amylase 29 U/L (28-100); Aspartate Amino Transferase 97 U/L (5-31); Bilirubin Direct 0.2 mg/dL (0.0-0.5); Bilirubin Total 0.2 mg/dL (0.0-1.0); Creatinine Clr Calc Pharmacy 107.4; Estimated Glomerular Filt Rate > 60; Total Protein 7.2 g/dL (6.5-8.0)
[2020-06-23 12:26] LABS: ~Hepatitis B Surface Antibody REACTIVE (Nonreactive)
[2020-06-23 12:27] LABS: HBc Num1 0.08 S/CO (0.00-0.79); HBsAGNum1 0.37 S/CO (0.00-0.99); HIV AB/AG Nonreactive (Nonreactive); HIV Num 1 0.22 S/CO (0.00-0.99); Hepatitis B Core Antibody Nonreactive (Nonreactive); Hepatitis B Surface Antigen Negative (Negative); ~HepC Num1 13.32 S/CO (0.00-0.79); ~Hepatitis C Antibody Reactive (Nonreactive)
--- NOTE | 2020-06-23 13:19 | PC.NURSE ---
Pt less hostile at this time, thanking staff. Continues to be confused at times, but more redirectable. Thanking staff.
--- NOTE | 2020-06-23 14:08 | PC.NURSE ---
Pt increasinglyhostile, no longer appears to be responding to visual hallucinations, less labile, but more hostile.
--- NOTE | 2020-06-23 14:12 | PC.NURSE ---
Late entrY Pt great toes, bilaterally, assessed. Wounds clean, dry, no erythema, sutures intact.
--- NOTE | 2020-06-23 15:24 | PC.NURSE ---
Dr Frazier in to evaluate.
--- NOTE | 2020-06-23 15:45 | PC.NURSE ---
Wounds to bilateral great toes cleaned with NS, Bacitracin applied, and covered with bandaids.
--- NOTE | 2020-06-23 17:09 | PC.NURSE ---
Pt resting, resp unlabored.
--- NOTE | 2020-06-23 17:12 | PC.NURSE ---
Reviewed situation with Dr. Frazier. Pt to remain in ED on current medications until tomorrow. Pt currently sleeping, resp unlabored. Meds due at 1500 not given due to level of drowsiness. Dr Frazier aware. Edward Delacruz aware of current plan.
[2020-06-23 18:00] VITALS: RESP 16
--- NOTE | 2020-06-23 19:38 | PC.NURSE ---
Patient wandering in hallway, yelling, screaming at staff member for multiple needs, little to no redirectability, signed release form/care team notified of release form, patient reassured, denied distress, will continue to monitor.
[2020-06-23] MEDS: Atorvastatin Calcium 80 MG TABLET PO (20:28)
[2020-06-23] MEDS: QUEtiapine Fumarate 300 MG TABLET 600 MG PO (20:29)
[2020-06-23] MEDS: Ibuprofen 800 MG TABLET PO (20:34)
[2020-06-23 20:37] VITALS: BP 102/62; PULSE 112; RESP 20; TEMP 36.5; O2SAT 95
--- NOTE | 2020-06-23 20:54 | PC.NURSE ---
Patient is in milieu, talking to co-patient, seems engaged, refused her HS depakote/took rest of her HS PO meds. No distress reported. Will continue to monitor.
[2020-06-23 22:16] LABS: COVID-19 Test Negative (Negative)
--- NOTE | 2020-06-23 23:39 | PC.NURSE ---
Patient in bed appears sleeping, no distress observed/reported, respiration =/=/non-labored bilaterally, will continue to monitor.
--- NOTE | 2020-06-24 00:03 | PM.EVENT ---
Event Note Date of Service: 06/24/20 Event Note: lab s medical hx reviewed discussed with pt
--- NOTE | 2020-06-24 02:30 | PC.NURSE ---
Patient in bed appears sleeping, no distress observed/reported, respiration +/=/non-labored bilaterally, will continue to monitor.
[2020-06-24 06:23] VITALS: RESP 17
--- NOTE | 2020-06-24 07:28 | PC.NURSE ---
REPORT TAKEN FROM SHARITA SULLIVAN. PT SLEEPING IN ROOM AT THIS TIME. BREAKFAST PROVIDED.
[2020-06-24] MEDS: Gabapentin 300 MG CAPSULE 900 MG PO ×3 (10:01→20:20)
[2020-06-24] MEDS: Ibuprofen 800 MG TABLET PO ×2 (10:02→20:23)
[2020-06-24] MEDS: QUEtiapine Fumarate 300 MG TABLET PO ×2 (10:15→14:28)
[2020-06-24 10:21] VITALS: RESP 18
--- NOTE | 2020-06-24 10:22 | PC.NURSE ---
pt woke, asking for meds for her toe pain, ibuprofen offered and pt accepted dose. am meds reviewed with pt, only wanted to take selected meds (see MAR). pt seems slightly agitated in her voice, requesting to talk with PA, PA made aware, but was overall cooperative with staff.
--- NOTE | 2020-06-24 10:54 | PC.NURSE ---
pt recxeptive to RN care to change bandages on toes after continuing to report toes were bothering her. wounds cleaned with saline and new bandages applied. pt has remained cooperative with staff.
[2020-06-24 11:21] VITALS: BP 123/78; PULSE 100; TEMP 36.6; O2SAT 97
[2020-06-24 14:05] VITALS: RESP 18
--- NOTE | 2020-06-24 16:19 | PC.NURSE ---
Pt calm at current. Sitting quietly sitting in room.
--- NOTE | 2020-06-24 16:54 | P.EN_ITS ---
Event Note Date of Service: 06/24/20 Event Note: Psychiatry follow up: Pt seen in area of ED, awake, alert, engaged in interview. Observed to be less sedated through the unit. During interview patient quite labile, irritable, angry, but remained in behavioral control. Verbalizing that she is angry her gabapentin dose was decreased also stating that she feels her methadone dose should be increased to 60mg QD. Discussed previous concern regarding over sedation and rationale behind decreasing some medications. Attempts to offer alternate medications to address pt's reported anxiety were declined. She states, I have tried Clonidine and Propranolol and they suck. Ativan and Klonopin or phenobarbital are the only things that work for me . She is not open to a trial of Depakote either. She verbalized wanting to go back to [place] to be with her regular doctors . Plan: * No increase to methadone, current dose appears to be effective and patient has not c/o withdrawal sx at all during her admission until today. Methadone increases can be managed outpt. * Avoid benzodiazepines. These may have been contributing to some of her disinhibited behaviors * patient may benefit from changing some of her current medications, but she is completely against it. Some of her behaviors may be related to personality disorder or her hx of brain injury--important to maintain clear consistent limits. * Overall, based on behaviors at time of admission and her presentation today, she has improved significantly (no physical or chemical restraints, less verbal outbursts, ability to have conversation without escalation, etc.)
--- NOTE | 2020-06-24 18:11 | PC.NURSE ---
Pt watching TV in common area with other patients, calm and cooperative at this time. Continues to intermittently ask for PRN medication, but is redirectable and is able to settle on her own.
--- NOTE | 2020-06-24 19:07 | PC.NURSE ---
Report received. PT is sleeping in her room. Plan is to monitor medication adjustment and keep pt safe.
[2020-06-24 20:16] VITALS: BP 103/71; PULSE 101; RESP 20; TEMP 36.9; O2SAT 97
[2020-06-24] MEDS: Atorvastatin Calcium 80 MG TABLET PO (20:21)
[2020-06-24] MEDS: QUEtiapine Fumarate 300 MG TABLET 600 MG PO (20:21)
[2020-06-24 23:42] VITALS: RESP 18
[2020-06-25 05:48] VITALS: BP 106/61; PULSE 81; RESP 16; TEMP 36.3; O2SAT 98
[2020-06-25 05:57] VITALS: BP 106/61; PULSE 81; RESP 16; TEMP 36.3; O2SAT 98
--- NOTE | 2020-06-25 07:01 | PC.NURSE ---
Report recieved. Pt currently sleeping, respirations even and unlabored, in no apparent distress. Pt remains inpatient bedsearch.
[2020-06-25] MEDS: QUEtiapine Fumarate 300 MG TABLET PO (08:04)
[2020-06-25] MEDS: Gabapentin 300 MG CAPSULE 900 MG PO (08:04)
[2020-06-25] MEDS: Ibuprofen 800 MG TABLET PO (08:05)
--- NOTE | 2020-06-25 10:26 | PC.NURSE ---
Pt began yelling at staff, demanding PRN medication, pt redirected to her room, verbally deescalated. Pt tearful, apologetic for behavior. Pt currently watching television in community area, calm and cooperative at this time.
--- NOTE | 2020-06-25 10:37 | MHC.CARE ---
CARE team assist in collateral contact with Lana mckinley c/o Arleen (Director of the [facility]). T/w inquired with Arleen if pts improvement would warrant a return which was firmly declined. She stated I've made it clear and telling everyone that she can't come back here , we've already been over this with so many people . She added that pt herself called asking to return and she told pt via phone she was not allowed back. Due to pts confrontational behavior with staff there she is allowed back and given that the program is voluntary and we are mandated to take her back . Arleen stated pt does not want treatment she just wants a bed and has no interest in cooperating with us . The program took pt back after experiencing the same behaviors in the past and these said behaviors can not be handled at this house.
[2020-06-25] MEDS: Naloxone HCl Nasal TAKE HOME 4 MG SPRAY NOSTRILALT (13:44)
--- NOTE | 2020-06-25 13:53 | MHC.CARE ---
CARE Team informed Pt is able to be discharged from the ED. Pt agreeable to be discharged to the living room. CARE Team to provide Pt transportation to [facility] living room via cab and provided Pt with taxi vouchers. Pt voiced she is likely to return to [facility], however CARE Team provided with local community resources if Pt decides to stay locally.
== END 2020-06-25 14:45 | disposition home or self-care (01) ==
PROVIDERS: Emergency Medicine; Physician Assistant; Physician Assistant Medical; Emergency Provider Student in an Organized Health Care Education/Training Program
DX: S51.811A Laceration without foreign body of right forearm, initial encounter (principal); S51.812A Laceration without foreign body of left forearm, initial encounter; S50.812A Abrasion of left forearm, initial encounter; S50.811A Abrasion of right forearm, initial encounter; F33.1 Major depressive disorder, recurrent, moderate; F11.10 Opioid abuse, uncomplicated; F41.1 Generalized anxiety disorder; F43.0 Acute stress reaction; X78.1XXA Intentional self-harm by knife, initial encounter; Y93.9 Activity, unspecified; Y92.89 Other specified places as the place of occurrence of the external cause; Y99.9 Unspecified external cause status; F17.200 Nicotine dependence, unspecified, uncomplicated; Z71.6 Tobacco abuse counseling; Z71.51 Drug abuse counseling and surveillance of drug abuser; Z79.899 Other long term (current) drug therapy; Z23 Encounter for immunization
CPT/HCPCS: 36415; 80048; 80076; 80307; 80320; 81001; 81025; 82150; 82565; 83735; 85025; 86704; 86706; 86803; 87340; 87389; 87635; 90715; 93005; 99285; J1200; J2060; J3230; J3486